=== PATIENT | male | born 1960 | race Caucasian/White ===

== ENCOUNTER 2016-10-13 22:41 | Emergency (ER) | payer OTHER, MEDICAID ==
[~2016-10-13] VITALS: Ht 180.3 cm; Wt 100.2 kg
[2016-10-13 22:48] VITALS: BP_SYST 145
--- NOTE | 2016-10-13 23:12 | NUR ---
Patient to ER bed 3 to gown for evaluation. Side rails up. Report given to AFSHIN MOORE.
[2016-10-13] MEDS ORDERED: NACL 0.9% 1,000 ML IV ONE (23:16)
--- NOTE | 2016-10-13 23:20 | NUR ---
Pt states having pain in leg area since earlier today. Pt states "the pain feels the same as when I had a clot before". Pain scale 5/10, states "pain is radiating up to groin area". L leg is warm to touch at pain site, no swelling noted to pain area. Pt denies any mechanism of injury. Pt denies SOB, chest pain at this time. Pt denies any other complaints.
--- NOTE | 2016-10-13 23:21 | NUR ---
ER Dr. Rogel at bedside examining patient.
[2016-10-13] MEDS ORDERED: IPRATROPIUM BROM 0.5 MG/2.5 ML VIAL.NEB (ATROVENT) IH ONE (23:30)
[2016-10-13] MEDS ORDERED: ALBUTEROL SULFATE 0.083% 2.5 MG/3 ML VIAL.NEB IH ONE (23:30)
[2016-10-13] MEDS ORDERED: MORPHINE 4 MG/ML INJ. SYRINGE IVP ONE (23:30)
[2016-10-13] MEDS ORDERED: methylPREDNISolone SOD SUCC/PF 62.5 MG/ML VIAL IVP ONE (23:30)
--- NOTE | 2016-10-13 23:47 | NUR ---
Allergies verified with pt prior to med administration. Correct patient, route, time, and dose verified at bedside.
--- NOTE | 2016-10-14 00:10 | NUR ---
No adverse effects to IV medications noted. Will continue to monitor patient.
[2016-10-14 00:16] LABS: BASOPHILS # (AUTO) 0.1 K/uL (0.0-0.2); BASOPHILS % (AUTO) 0.5 % (0.0-2.0); EOSINOPHILS % (AUTO) 0.4 % (0.0-4.0); HEMATOCRIT 48.5 % (36-54); HEMOGLOBIN 15.8 g/dL (14.0-18.0); LYMPHOCYTES # (AUTO) 2.7 K/uL (1.0-5.5); LYMPHOCYTES % (AUTO) 24.8 % (20.5-51.5); MEAN CORPUSCULAR HEMOGLOBIN 26 pg (27-31); MEAN CORPUSCULAR HGB CONC 33 % (32-36); MEAN CORPUSCULAR VOLUME 81 fL (79.0-98.0); MONOCYTES # (AUTO) 0.8 K/uL (0.0-1.0); MONOCYTES % (AUTO) 7.4 % (1.7-9.3); NEUTROPHILS # (AUTO) 7.3 K/uL (1.8-7.7); NEUTROPHILS % (AUTO) 66.9 % (40.0-70.0); PLATELET COUNT (AUTO) 277 K/uL (130-430); RED CELL DISTRIBUTION WIDTH 13.6 % (9.0-15.0); WHITE BLOOD COUNT (AUTO) 10.9 K/uL (4.8-10.8)
[2016-10-14 00:24] LABS: CALCIUM 10.4 mg/dL (8.4-11.0); CREATININE 0.98 mg/dL (0.55-1.30); POTASSIUM 3.3 mmol/L (3.5-5.1)
[2016-10-14 00:32] LABS: TOTAL BILIRUBIN 0.4 mg/dL (0.0-1.0); TOTAL PROTEIN, SERUM 7.5 g/dL (6.4-8.3)
[2016-10-14 00:43] LABS: BILIRUBIN,URINE NEGATIVE (NEGATIVE); BLOOD, URINE NEGATIVE (NEGATIVE); CLARITY/URINE CLEAR (CLEAR); COLOR,URINE YELLOW (YELLOW); GLUCOSE,URINE NEGATIVE (NEGATIVE); KETONES,URINE NEGATIVE (NEGATIVE); LEUKOCYTE ESTERASE ,URINE NEGATIVE (NEGATIVE); NITRITE, URINE NEGATIVE (NEGATIVE); PROTEIN URINE NEGATIVE (NEGATIVE); UROBILINOGEN,URINE 0.2 (0.2-1.0)
[2016-10-14 01:07] VITALS: BP_SYST 143
--- NOTE | 2016-10-14 01:07 | NUR ---
Patient given written and verbal discharge instructions and verbalizes understanding. ER MD discussed with patient the results and treatment provided. Patient in stable condition. ID arm band removed. IV catheter removed intact and dressing applied, no active bleeding. Rx of Naprosyn, albuterol given. Patient educated on pain management and to follow up with PMD. Pain Scale 0/10. Opportunity for questions provided and answered.
== END 2016-10-14 01:07 | disposition home or self-care (01) ==
LOC: SED 22:41
DX: M79.605 Pain in left leg (principal); J44.9 Chronic obstructive pulmonary disease, unspecified; I10 Essential (primary) hypertension; Z86.718 Personal history of other venous thrombosis and embolism; Z88.1 Allergy status to other antibiotic agents; Z88.2 Allergy status to sulfonamides; Z88.8 Allergy status to other drugs, medicaments and biological substances
CPT/HCPCS: 36415; 71010; 80053; 81003; 82150; 83690; 85025; 85610; 85730; 93971; 94640; 96361; 96374; 99285; J2930; J7030; J2270

== ENCOUNTER 2017-05-02 07:41 | Emergency (ER) | payer OTHER, MEDICAID ==
[~2017-05-02] VITALS: Ht 180.3 cm; Wt 104.3 kg
[2017-05-02 07:47] VITALS: BP_SYST 123
[2017-05-02 08:06] VITALS: BP_SYST 123
== END 2017-05-02 08:06 | disposition home or self-care (01) ==
LOC: SED 07:41
DX: H10.9 Unspecified conjunctivitis (principal); J44.9 Chronic obstructive pulmonary disease, unspecified; I10 Essential (primary) hypertension; Z86.718 Personal history of other venous thrombosis and embolism; Z88.1 Allergy status to other antibiotic agents; Z88.2 Allergy status to sulfonamides; Z88.8 Allergy status to other drugs, medicaments and biological substances
CPT/HCPCS: 99283

== ENCOUNTER 2017-08-09 14:03 | Emergency (ER) | payer OTHER, MEDICAID ==
[~2017-08-09] VITALS: Ht 180.3 cm; Wt 106.6 kg
[2017-08-09 14:06] VITALS: BP_SYST 146
[2017-08-09] MEDS ORDERED: IPRATROPIUM/ALBUTEROL SULFATE 3 ML AMPUL.NEB INH ONE ×2 (15:45)
[2017-08-09] MEDS ORDERED: BACITRACIN 1 GM OINT TP ONE (16:00)
[2017-08-09 16:12] VITALS: BP_SYST 146
== END 2017-08-09 16:12 | disposition home or self-care (01) ==
LOC: SED 14:03
DX: J44.1 Chronic obstructive pulmonary disease with (acute) exacerbation (principal); M79.675 Pain in left toe(s); I10 Essential (primary) hypertension; Z88.2 Allergy status to sulfonamides; Z88.1 Allergy status to other antibiotic agents; Z86.718 Personal history of other venous thrombosis and embolism; Z88.5 Allergy status to narcotic agent
CPT/HCPCS: 71045; 94640; 99284

== ENCOUNTER 2023-09-16 14:07 | Emergency (ER) | payer OTHER, MEDICAID ==
[~2023-09-16] VITALS: Ht 180.3 cm; Wt 84.8 kg
[2023-09-16 14:53] VITALS: BP_SYST 147; PULSE 89; RESP 18; TEMP 98; O2SAT 97
[2023-09-16] MEDS: DEXAMETHASONE SOD PHOSPHATE 10 MG/ML VIAL IM ONE (17:54)
[2023-09-16] MEDS: KETOROLAC TROMETHAMINE 30 MG VIAL IM ONE (17:54)
[2023-09-16 17:58] VITALS: BP_SYST 147; PULSE 89; RESP 18; TEMP 98; O2SAT 97
== END 2023-09-16 17:57 | disposition home or self-care (01) ==
LOC: SED 14:07
DX: M54.16 Radiculopathy, lumbar region (principal); M54.50 Low back pain, unspecified; J44.9 Chronic obstructive pulmonary disease, unspecified; I10 Essential (primary) hypertension; Z88.1 Allergy status to other antibiotic agents; Z88.2 Allergy status to sulfonamides; Z88.7 Allergy status to serum and vaccine; Z88.8 Allergy status to other drugs, medicaments and biological substances
CPT/HCPCS: 99285; 72131; 96372; J1100; J1885